=== PATIENT | male | born 1945 | race Caucasian/White ===

== ENCOUNTER 2017-04-04 09:15 | Inpatient (IN) | payer MEDICARE, OTHER ==
--- NOTE | ~2017-04-04 | DS ---
Discharge Summary [facility] [address] [place]. [address] NAME: JARED CRAIG : 41 STATUS : DIS IN PAT#: [id number] AGE: 72 ADM/REG DATE : 04/04/17 MR#: [id number] REPORT SERV DATE: 04/08/17 DICTATED BY: RADHA HOWARD DATE: 04/07/17 REPORT STATUS : Draft TRANSCRIBED BY: MODL DATE: 04/07/17 ADMISSION DATE: 04/04/2017 DISCHARGE DATE: 04/07/2017 DISCHARGE DIAGNOSES: 1. Acute on chronic hypoxic respiratory failure. The patient is 100% on 3 L with his home oxygen requirement. 2. Acute congestive heart failure. Was treated and the patient will be discharged to home with a heart failure management including Lasix, spironolactone, Coreg, and ramipril. 3. [id number] myocardial infarction, status post PCI. The patient had a drug-eluted stent on this admission. 4. Chronic obstructive pulmonary disease, chronic. 5. Anemia with heme-positive stool, but the patient does not have any gross bleeding and his H and H have been stable. Had a one unit of blood for respiratory status improvement. CONSULTANTS: 1. Dr. Campo. 2. Dr. Cunha. PROCEDURE: PCI cardiac catheterization. HISTORY OF PRESENT ILLNESS: This is a 72-year-old male patient, who does have a chronic respiratory failure with chronic home oxygen use for emphysema, came to the hospital with short of breath and worsening hypoxia. Please see dictated H and P. HOSPITAL COURSE: He was admitted to hospital at [facility] with heart failure, COPD, and non ST elevation [place]. He was evaluated with floor coverer and then [facility]. At the same time, he was found to be anemic and his stool was heme-positive. He was seen by Dr. Campo over at [facility]. The patient after transferred here had a cardiac catheterization, which showed flow-limiting coronary artery disease, had a drug-eluting stent done on this admission. After that, he did not have any more dropping of his blood work, did not require transfusion after that. He had one unit of transfusion right after he was transferred from the [facility]. He has been maintained heart failure management medical treatment. He has been stable and did not have any further GI bleed issue as well. Dr. Campo recommended not any procedure at this point. May be able to do more further workup in 30 days after Plavix started in case of emergency need, however did not indicate any elective procedure at this point. So, the patient will be discharged to home with a change of medication for the heart failure and coronary artery disease. DISCHARGE MEDICATIONS: Aspirin 81 mg once a day, Lipitor 40 mg once at nighttime, Coreg 6.25 mg twice a day, Plavix 75 mg once a day, ferrous sulfate 300 mg twice a day, Lasix 40 mg once a day, 2.5 mg once a day, Aldactone 25 mg once a day, continue Flomax 0.4 mg once a day, Protonix 40 mg once a day, Spiriva once a day, Shon-Dur 200 mg twice a day, ProAir as needed, Symbicort twice a day. Discharge Summary [address] [address] NAME: JARED CRAIG : 41 STATUS : DIS IN PAT#: [id number] AGE: 72 ADM/REG DATE : 04/04/17 MR#: [id number] REPORT SERV DATE: 04/08/17 DICTATED BY: RADHA HOWARD DATE: 04/07/17 REPORT STATUS : Draft TRANSCRIBED BY: THADDEUS DATE: 04/07/17 Zocor and Norvasc were discontinued and will be given a prescription of the tapering dose of prednisone on discharge. DISPOSITION: The patient is discharged to home in stable condition. Need to follow up with floor coverer, GI, and primary care physician. TIME SPENT: More than 30 minutes. DICTATED BY: Carlos Johnson/THADDEUS Radha Howard M.D. / [id number] CC: Radha Howard M.D.
[~2017-04-04 09:15] MED LIST: ACCUNE1 INH; ACCUNEB INH; AMB5 PO; ASA5GR PO; ASAB PO; ATROVENTUD INH; CLARIT10; CLARIT10 PO; DSS PO; DUONEB INH; FLOMAX4 PO; FLONASE NAS; LEVAQUIN750 MG PO; MUCINEX600 MG PO; NEXIUM40 PO; NORCO1 TAB PO; NORV10 PO; NORV25 PO; NORV5 PO; P10 PO; P20 PO; PRILO PO; PROAIR HFA INH; PROTONIX PO; SPIRIVA INH; STERAPRED DS10 MG; SYMBICORT 160/41 INH INH; T200 PO; T300 PO; ZOCOR; ZOCOR20 PO; ZOCOR40 PO
[2017-04-05 03:48] LABS: BASOPHILS 0 %; EOSINOPHILS 0 %; HEMOGLOBIN 9.3 g/dL (13.6-17.8); IMMATURE GRANULOCYTES 0.3 %; IMMATURE GRANULOCYTES ABSOLUTE 0.03 10/3/uL (0.0-0.11); LYMPHOCYTES 4.5 %; MEAN CORPUS HGB CONC 29.3 g/dL (32.0-36.0); MEAN CORPUSCULAR HEMOGLOB 21.8 pg (26.0-34.0); MEAN CORPUSCULAR VOLUME 74.4 fL (80-100); MEAN PLATELET VOLUME 10.3 fL (9.2-13.0); MONOCYTES 3.7 %; MONOCYTES ABSOLUTE 0.42 10/3/uL (0.21-1.20); NEUTROPHILS 91.5 %; NEUTROPHILS ABSOLUTE 10.28 10/3/uL (2.02-8.40); PLATELET COUNT 317 10/3/uL (150-400); RBC DISTRIBUTION WIDTH 17.8 % (12.0-16.0); RED CELL COUNT 4.26 10/6/uL (4.7-6.1); WHITE BLOOD CELLS 11.2 10/3/uL (4.5-10.5)
[2017-04-05 03:50] LABS: HEMATOCRIT 31.7 % (40.0-51.0); MANUAL DIFF NO %
[2017-04-05 04:05] LABS: BUN (BLOOD UREA NITROGEN) 30 MG/DL (6-23); CALCIUM, SERUM 7.7 MG/DL (8.5-10.4); CHLORIDE, SERUM 103 MMOL/L (96-112); CO2 (CARBON DIOXIDE) 32 MMOL/L (24-34); CREATININE 0.93 MG/DL (0.70-1.30); GFR AFRICAN AMERICAN 93 ML/MIN (>=60); GFR NON AFRICAN AMERICAN 81 ML/MIN (>=60); GLUCOSE, SERUM 141 MG/DL (60-99); POTASSIUM, SERUM 3.6 MMOL/L (3.5-5.3); SODIUM, SERUM 140 MMOL/L (135-148)
[2017-04-05 04:08] LABS: ANISOCYTOSIS 1+ (5-10/OIF) (0-5/OIF); MICROCYTES 1+ (5-10/OIF) (0-5/OIF); PLATELET ESTIMATE ADQ (ADEQUATE); POLYCHROMASIA 1+ (2-5/OIF) (0-1/OIF)
[2017-04-06 05:44] LABS: BASOPHILS 0 %; EOSINOPHILS 0 %; HEMATOCRIT 32.1 % (40.0-51.0); HEMOGLOBIN 9.5 g/dL (13.6-17.8); IMMATURE GRANULOCYTES 0.3 %; IMMATURE GRANULOCYTES ABSOLUTE 0.03 10/3/uL (0.0-0.11); LYMPHOCYTES 7.5 %; LYMPHOCYTES ABSOLUTE 0.74 10/3/uL (0.67-4.30); MANUAL DIFF NO %; MEAN CORPUS HGB CONC 29.6 g/dL (32.0-36.0); MEAN CORPUSCULAR HEMOGLOB 21.8 pg (26.0-34.0); MEAN CORPUSCULAR VOLUME 73.8 fL (80-100); MEAN PLATELET VOLUME 10.9 fL (9.2-13.0); MONOCYTES 9.3 %; MONOCYTES ABSOLUTE 0.91 10/3/uL (0.21-1.20); NEUTROPHILS 82.9 %; NEUTROPHILS ABSOLUTE 8.14 10/3/uL (2.02-8.40); PLATELET COUNT 322 10/3/uL (150-400); RED CELL COUNT 4.35 10/6/uL (4.7-6.1); WHITE BLOOD CELLS 9.8 10/3/uL (4.5-10.5)
[2017-04-06 05:48] LABS: CHLORIDE, SERUM 106 MMOL/L (96-112); CO2 (CARBON DIOXIDE) 33 MMOL/L (24-34); CREATININE 0.84 MG/DL (0.70-1.30); GFR AFRICAN AMERICAN 100 ML/MIN (>=60); GFR NON AFRICAN AMERICAN 86 ML/MIN (>=60); POTASSIUM, SERUM 3.8 MMOL/L (3.5-5.3); SODIUM, SERUM 145 MMOL/L (135-148)
[2017-04-06 05:51] LABS: BUN (BLOOD UREA NITROGEN) 34 MG/DL (6-23); GLUCOSE, SERUM 106 MG/DL (60-99)
[2017-04-06 06:18] LABS: ANISOCYTOSIS 1+ (5-10/OIF) (0-5/OIF); PLATELET ESTIMATE ADQ (ADEQUATE)
[2017-04-07 06:00] LABS: BUN (BLOOD UREA NITROGEN) 33 MG/DL (6-23); CHLORIDE, SERUM 105 MMOL/L (96-112); CO2 (CARBON DIOXIDE) 32 MMOL/L (24-34); CREATININE 0.92 MG/DL (0.70-1.30); GFR AFRICAN AMERICAN 95 ML/MIN (>=60); GFR NON AFRICAN AMERICAN 82 ML/MIN (>=60); POTASSIUM, SERUM 3.9 MMOL/L (3.5-5.3); SODIUM, SERUM 141 MMOL/L (135-148)
[2017-04-07 06:01] LABS: GLUCOSE, SERUM 137 MG/DL (60-99)
[2017-04-07] MEDS ORDERED: LIPITOR40 PO (10:49)
[2017-04-07] MEDS ORDERED: PLAVIX PO (10:50)
[2017-04-07] MEDS ORDERED: COREG6 PO (10:50)
[2017-04-07] MEDS ORDERED: FESO4 PO (10:51)
[2017-04-07] MEDS ORDERED: ALTA2.5 PO (10:51)
[2017-04-07] MEDS ORDERED: L40 PO (10:51)
[2017-04-07] MEDS ORDERED: SPIRO25 PO (10:52)
[2017-04-07] MEDS ORDERED: P10 PO (11:00)
== END 2017-04-07 13:39 | disposition home or self-care (01) | DRG 248 ==
LOC: CORLMH 09:15 → SSU1 10:07 → 7NO 04-05 13:59
PROVIDERS: Internal Medicine; Internal Medicine Cardiovascular Disease
PROC: 02703DZ Dilation of Coronary Artery, One Artery with Intraluminal Device, Percutaneous Approach (ICD-10-PCS; principal; 2017-04-04)
PROC: 4A023N7 Measurement of Cardiac Sampling and Pressure, Left Heart, Percutaneous Approach (ICD-10-PCS; 2017-04-04)
PROC: B2111ZZ Fluoroscopy of Multiple Coronary Arteries using Low Osmolar Contrast (ICD-10-PCS; 2017-04-04)
PROC: 30233N1 Transfusion of Nonautologous Red Blood Cells into Peripheral Vein, Percutaneous Approach (ICD-10-PCS; 2017-04-04)
DX: I21.4 Non-ST elevation (NSTEMI) myocardial infarction (principal); I50.43 Acute on chronic combined systolic (congestive) and diastolic (congestive) heart failure; J96.21 Acute and chronic respiratory failure with hypoxia; K92.2 Gastrointestinal hemorrhage, unspecified; Z99.81 Dependence on supplemental oxygen; I11.0 Hypertensive heart disease with heart failure; I25.10 Atherosclerotic heart disease of native coronary artery without angina pectoris; N18.9 Chronic kidney disease, unspecified; E78.00 Pure hypercholesterolemia, unspecified; E78.5 Hyperlipidemia, unspecified; D50.9 Iron deficiency anemia, unspecified; K21.9 Gastro-esophageal reflux disease without esophagitis; J44.9 Chronic obstructive pulmonary disease, unspecified; I24.8 Other forms of acute ischemic heart disease; R19.5 Other fecal abnormalities; I12.9 Hypertensive chronic kidney disease with stage 1 through stage 4 chronic kidney disease, or unspecified chronic kidney disease; Z82.49 Family history of ischemic heart disease and other diseases of the circulatory system; Z87.891 Personal history of nicotine dependence; Z86.010 Personal history of colon polyps; Z90.49 Acquired absence of other specified parts of digestive tract
CPT/HCPCS: 36415; 36600; 71010; 80048; 80053; 80198; 81001; 82272; 82607; 82728; 82746; 82805; 83540; 83550; 83880; 84100; 84145; 84155; 84436; 84443; 84484; 85025; 85045; 85347; 86850; 86900; 86901; 86920; 87040; 87070; 87205; 87641; 92928; 93005; 93306; 93458; 94640; 94644; 94660; 96374; 96375; 99152; 99153; 99291; A9270-GY; C1725; C1769; C1876; C1887; C1894; J0456; J1200; J1940; J2250; J2920; J2930; J3010; P9016; Q9967